=== PATIENT | male | born 1960 | race Two or more races ===

== ENCOUNTER 2020-02-18 15:36 | Inpatient (IN) | payer BC, OTHER ==
[~2020-02-18] VITALS: Ht 165.1 cm; Wt 59.5 kg
[2020-02-18] MEDS ORDERED: SODIUM CHLORIDE 0.9% 1,000 ML IV ONE (16:00)
[2020-02-18] MEDS ORDERED: cefTRIAXone 1GM/50ML D5W 50 ML IV ONE (16:15)
[2020-02-18] MEDS ORDERED: metroNIDAZOLE 500MG/100ML 100 ML IV ONE (16:15)
[2020-02-18 17:19] LABS: Basophils # (auto) 0.1 10 ^3/uL (0-0.2); Basophils % (auto) 0.6 % (0.0-2.0); Eosinophils # (auto) 0 10 ^3/uL (0-0.8); Eosinophils % (auto) 0.1 % (0.0-7.0); Hematocrit 44.2 % (41.0-53.0); Hemoglobin 14.7 g/dL (13.5-17.5); Lymphocytes # (auto) 2.5 10 ^3/uL (0.4-5.4); Lymphocytes % (auto) 16.6 % (10.0-50.0); Mean Corpuscular Hemoglobin 29.7 pg (28.0-32.0); Mean Corpuscular Hgb Conc. 33.3 g/dL (32.0-36.0); Mean Corpuscular Volume 89.4 fL (80.0-100.0); Monocytes # (auto) 1.2 10 ^3/uL (0-1.3); Neutrophils # (auto) 11.4 10 ^3/uL (1.6-8.6); Neutrophils % (auto) 74.7 % (37.0-80.0); Nucleated Red Blood Cells % 0.1 %; Platelet Count (auto) 272 10^3/uL (140-450); Red Blood Cells 4.94 10^6/uL (4.5-5.90); Red Cell Distribution Width 15.4 % (11.8-14.3); White Blood Cell 15.2 10^3/uL (4.4-10.8)
[2020-02-18 17:47] LABS: Alanine Aminotransferase 19 U/L (16-61); Albumin 1.5 g/dL (3.4-5.0); Anion Gap 11 (5-15); Aspartate Aminotransferase 44 U/L (15-37); BUN/Creatinine Ratio 11.7; Blood Urea Nitrogen 7 mg/dL (7-18); Calcium 7.6 mg/dL (8.5-10.1); Carbon Dioxide 24 mmol/L (21-32); Chloride 92 mmol/L (98-107); GFR African American 176 mL/min; GFR Non-African American 146 mL/min; Glucose 88 mg/dL (74-106); Potassium 4.8 mmol/L (3.5-5.1); Sodium 127 mmol/L (136-145)
[2020-02-18 17:53] LABS: Alkaline Phosphatase 113 U/L (45-117); Bilirubin, Total 0.9 mg/dL (0.2-1.0); Total Protein 7.2 g/dL (6.4-8.2)
[2020-02-18] MEDS ORDERED: LORazepam 2MG/ML-1ML VIAL IV PRN (19:30)
[2020-02-18] MEDS ORDERED: ALBUTEROL SULF HFA 90MCG INH 200DOSE IN PRN (19:30)
[2020-02-18] MEDS ORDERED: LABETALOL HCL 5 MG/ML 4ML SYRINGE IV PRN (19:30)
[2020-02-18] MEDS ORDERED: ONDANSETRON HCL 4 MG/2 ML VIAL IV PRN (19:30)
[2020-02-18] MEDS ORDERED: MORPHINE SULF INJ 2 MG/ML SYRINGE 1ML IV PRN ×2 (19:30)
[2020-02-18] MEDS ORDERED: NITROGLYCERIN 0.4 MG SL TAB SL PRN (19:30)
[2020-02-18 19:42] LABS: INR 1.69 (0.9-1.15); Partial Thromboplastin Time 37.9 sec (23.0-31.2)
[2020-02-18] MEDS: SODIUM CHLORIDE 0.9% 1,000 ML IV SCH (21:21)
[2020-02-18] MEDS: BUDESONIDE (INHALATION) 180 MCG IH IN SCH (22:00)
[2020-02-18] MEDS: metroNIDAZOLE 500MG/100ML 100 ML IV SCH (22:53)
[2020-02-19] MEDS: CLINDAMYCIN 300MG IV 50 ML IV SCH ×4 (00:21→22:00)
[2020-02-19] MEDS: PIPERACILLIN-TAZOB 3.375GM 100 ML IV SCH ×4 (01:06→18:30)
[2020-02-19] MEDS: SODIUM CHLORIDE 0.9% 1,000 ML IV SCH ×2 (05:30→15:30)
[2020-02-19] MEDS: metroNIDAZOLE 500MG/100ML 100 ML IV SCH ×2 (06:00→18:24)
[2020-02-19 09:50] LABS: Basophils # (auto) 0.1 10 ^3/uL (0-0.2); Basophils % (auto) 0.6 % (0.0-2.0); Eosinophils # (auto) 0 10 ^3/uL (0-0.8); Eosinophils % (auto) 0.1 % (0.0-7.0); Hematocrit 39.8 % (41.0-53.0); Hemoglobin 13.4 g/dL (13.5-17.5); Lymphocytes # (auto) 1.6 10 ^3/uL (0.4-5.4); Lymphocytes % (auto) 11.5 % (10.0-50.0); Mean Corpuscular Hgb Conc. 33.7 g/dL (32.0-36.0); Monocytes # (auto) 0.7 10 ^3/uL (0-1.3); Neutrophils # (auto) 11.5 10 ^3/uL (1.6-8.6); Neutrophils % (auto) 82.8 % (37.0-80.0); Nucleated Red Blood Cells % 0.1 %; Platelet Count (auto) 227 10^3/uL (140-450); Red Blood Cells 4.47 10^6/uL (4.5-5.90); Red Cell Distribution Width 15.4 % (11.8-14.3); White Blood Cell 13.8 10^3/uL (4.4-10.8)
[2020-02-19] MEDS: PANTOPRAZOLE 40 MG/10 ML VIAL INJ IV SCH (09:56)
[2020-02-19] MEDS: ENOXAPARIN SOD 40 MG/0.4 ML SYRINGE SC SCH (09:56)
[2020-02-19] MEDS: BUDESONIDE (INHALATION) 180 MCG IH IN SCH ×2 (10:00→10:51)
[2020-02-19 10:12] LABS: Potassium 4.4 mmol/L (3.5-5.1)
[2020-02-19 10:28] LABS: Albumin 1.4 g/dL (3.4-5.0); Bilirubin, Total 0.9 mg/dL (0.2-1.0); Calcium 7.5 mg/dL (8.5-10.1); Total Protein 6.6 g/dL (6.4-8.2)
[2020-02-19 13:35] VITALS: BP 131/68
[2020-02-19 13:50] VITALS: BP 131/68
[2020-02-19] MEDS ORDERED: DEXTROSE (50%) 50ML SYRG IV PRN (15:15)
[2020-02-19 15:24] LABS: Urine Bacteria NONE SEEN /hpf (None Seen); Urine Blood Negative /uL (Negative); Urine Budding Yeast LOADED /hpf (None Seen); Urine Specific Gravity 1.013 (1.001-1.035); Urine WBC 15 /hpf (0 - 3)
[2020-02-19 15:41] LABS: Amphetamine Screen, Urine NEGATIVE (NEGATIVE); Barbiturate Scree,Urine NEGATIVE (NEGATIVE); Benzodiazephine Screen, Urine NEGATIVE (NEGATIVE); Cannabinoid Screen, Urine NEGATIVE (NEGATIVE); Cocaine Screen, Urine NEGATIVE (NEGATIVE); Opiate Scree,Urine NEGATIVE (NEGATIVE); Phencyclidine Screen, Urine NEGATIVE (NEGATIVE)
[2020-02-19] MEDS ORDERED: IOHEXOL 350 MG/ML 100ML IJ ONE ×2 (16:21→21:13)
[2020-02-19 17:00] VITALS: BP 138/69
[2020-02-19] MEDS: ACCU-CHEK COMFORT CURVE STRIP VI SCH ×2 (17:00→22:00)
[2020-02-19] MEDS: InsuLIN REG 1unit/0.01ml Soln (100units/ml) SC SCH ×2 (17:00→22:00)
[2020-02-19] MEDS ORDERED: PROMETHAZINE HCL 25 MG/ML 1ML ONE (17:37)
[2020-02-19] MEDS: Glucerna Carbsteady SHAKE Vanilla 8oz PO SCH (18:00)
[2020-02-19] MEDS ORDERED: ALBUTEROL SULF 2.5 MG/0.5ML(0.5%) NEB SOLN NEB PRN (20:15)
[2020-02-19 22:00] VITALS: BP 134/65
[2020-02-20] MEDS: PIPERACILLIN-TAZOB 3.375GM 100 ML IV SCH ×4 (00:05→18:40)
[2020-02-20] MEDS: SODIUM CHLORIDE 0.9% 1,000 ML IV SCH ×2 (01:30→11:30)
[2020-02-20] MEDS: metroNIDAZOLE 500MG/100ML 100 ML IV SCH ×3 (02:45→18:40)
[2020-02-20 05:00] VITALS: BP 134/72
[2020-02-20] MEDS: CLINDAMYCIN 300MG IV 50 ML IV SCH ×2 (05:50→14:01)
[2020-02-20] MEDS: ACCU-CHEK COMFORT CURVE STRIP VI SCH ×3 (06:39→18:41)
[2020-02-20] MEDS: InsuLIN REG 1unit/0.01ml Soln (100units/ml) SC SCH ×3 (06:46→18:42)
[2020-02-20] MEDS: Glucerna Carbsteady SHAKE Vanilla 8oz PO SCH ×3 (08:00→18:00)
[2020-02-20 09:00] VITALS: BP 152/72
[2020-02-20 09:16] LABS: Basophils # (auto) 0.1 10 ^3/uL (0-0.2); Basophils % (auto) 0.7 % (0.0-2.0); Eosinophils # (auto) 0 10 ^3/uL (0-0.8); Eosinophils % (auto) 0.2 % (0.0-7.0); Hematocrit 43.5 % (41.0-53.0); Hemoglobin 14.8 g/dL (13.5-17.5); Lymphocytes # (auto) 2.3 10 ^3/uL (0.4-5.4); Mean Corpuscular Hemoglobin 30.1 pg (28.0-32.0); Mean Corpuscular Volume 88.4 fL (80.0-100.0); Monocytes # (auto) 0.6 10 ^3/uL (0-1.3); Monocytes % (auto) 3.2 % (0.0-12.0); Neutrophils # (auto) 16.4 10 ^3/uL (1.6-8.6); Neutrophils % (auto) 83.9 % (37.0-80.0); Nucleated Red Blood Cells % 0.1 %; Platelet Count (auto) 292 10^3/uL (140-450); Red Blood Cells 4.92 10^6/uL (4.5-5.90); Red Cell Distribution Width 15.6 % (11.8-14.3); White Blood Cell 19.5 10^3/uL (4.4-10.8)
[2020-02-20 09:31] LABS: Albumin 1.5 g/dL (3.4-5.0); Calcium 7.7 mg/dL (8.5-10.1); Potassium 3.8 mmol/L (3.5-5.1)
[2020-02-20 09:34] LABS: BUN/Creatinine Ratio 6.4; Bilirubin, Total 1.2 mg/dL (0.2-1.0); Total Protein 7.8 g/dL (6.4-8.2)
[2020-02-20] MEDS ORDERED: PHYTONADIONE(VitK) ORAL Susp 10mg/10ml(1mg/ml) PO ONE (10:45)
[2020-02-20] MEDS ORDERED: LOSARTAN POTASSIUM 50 MG TAB PO ONE (11:15)
[2020-02-20] MEDS: PANTOPRAZOLE 40 MG/10 ML VIAL INJ IV SCH (11:53)
[2020-02-20] MEDS: ENOXAPARIN SOD 40 MG/0.4 ML SYRINGE SC SCH (11:53)
[2020-02-20] MEDS: ACETAMINOPHEN 325 MG TAB PO PRN (12:27)
[2020-02-20 13:00] VITALS: BP 144/69
[2020-02-20 17:00] VITALS: BP 146/64
[2020-02-20 22:00] VITALS: BP 146/83
[2020-02-20] MEDS ORDERED: PHENYTOIN SODIUM 100 MG CAP PO SCH (22:00)
[2020-02-20] MEDS: ATORVASTATIN 20 MG TAB PO SCH (22:29)
[2020-02-20] MEDS ORDERED: SUCCINYLCHOLINE CHLORIDE 20 MG/ML 10ML VIAL IV ONE ×2 (23:03→23:30)
[2020-02-20] MEDS ORDERED: ROCURONIUM 10MG/ML 10ML VIAL IV ONE (23:03)
[2020-02-20] MEDS ORDERED: ETOMIDATE (2MG/ML) 20ML VIAL IV ONE ×2 (23:03→23:30)
[2020-02-20 23:30] VITALS: BP 162/86
[2020-02-20] MEDS ORDERED: ACETAMINOPHEN 650 mg PER 20.3 mL UD GT PRN ×3 (23:30)
[2020-02-20] MEDS ORDERED: MIDAZOLAM DRIP 50 mg/50mL 50 ML IV SCH ×2 (23:30)
[2020-02-20] MEDS ORDERED: NOREPINEPHRINE 8 MG/250ML KIT 250 ML IV ONE (23:53)
[2020-02-21] VITALS (110 sets, daily range): BP systolic 62–170; BP diastolic 40–91
[2020-02-21] MEDS: InsuLIN REG 1unit/0.01ml Soln (100units/ml) SC SCH ×4 (00:23→23:19)
[2020-02-21] MEDS: ACCU-CHEK COMFORT CURVE STRIP VI SCH ×3 (00:23→23:19)
[2020-02-21] MEDS: MIDAZOLAM DRIP 50 mg/50mL 50 ML IV SCH ×2 (00:25→21:58)
[2020-02-21] MEDS ORDERED: fentaNYL Drip 2500mCg/250mlNS 250 ML IV ONE (00:28)
[2020-02-21] MEDS: SODIUM CHLORIDE 0.9% 1,000 ML IV SCH ×3 (00:32→17:30)
[2020-02-21] MEDS: NOREPINEPHRINE 8 MG/250ML KIT 250 ML IV SCH ×2 (00:33→21:44)
[2020-02-21] MEDS: fentaNYL Drip 2500mCg/250mlNS 250 ML IV SCH (00:33)
[2020-02-21] MEDS: PIPERACILLIN-TAZOB 3.375GM 100 ML IV SCH ×2 (01:02→05:34)
[2020-02-21] MEDS: metroNIDAZOLE 500MG/100ML 100 ML IV SCH ×2 (01:53→10:24)
[2020-02-21 03:43] LABS: Basophils # (auto) 0.1 10 ^3/uL (0-0.2); Basophils % (auto) 0.5 % (0.0-2.0); Eosinophils # (auto) 0 10 ^3/uL (0-0.8); Eosinophils % (auto) 0.1 % (0.0-7.0); Hematocrit 35.8 % (41.0-53.0); Hemoglobin 12.4 g/dL (13.5-17.5); Lymphocytes # (auto) 1.6 10 ^3/uL (0.4-5.4); Lymphocytes % (auto) 9.4 % (10.0-50.0); Mean Corpuscular Hemoglobin 30.7 pg (28.0-32.0); Mean Corpuscular Hgb Conc. 34.8 g/dL (32.0-36.0); Mean Corpuscular Volume 88.3 fL (80.0-100.0); Monocytes # (auto) 0.6 10 ^3/uL (0-1.3); Monocytes % (auto) 3.5 % (0.0-12.0); Neutrophils # (auto) 15.1 10 ^3/uL (1.6-8.6); Neutrophils % (auto) 86.5 % (37.0-80.0); Platelet Count (auto) 266 10^3/uL (140-450); Red Blood Cells 4.05 10^6/uL (4.5-5.90); Red Cell Distribution Width 15.5 % (11.8-14.3); White Blood Cell 17.4 10^3/uL (4.4-10.8)
[2020-02-21 03:57] LABS: INR 2.04 (0.9-1.15)
[2020-02-21 04:02] LABS: Albumin 1.4 g/dL (3.4-5.0); Calcium 7.4 mg/dL (8.5-10.1)
[2020-02-21 04:04] LABS: BUN/Creatinine Ratio 8.3; Bilirubin, Total 1.2 mg/dL (0.2-1.0); Total Protein 6.6 g/dL (6.4-8.2)
[2020-02-21] MEDS: CLINDAMYCIN 300MG IV 50 ML IV SCH ×2 (05:34)
[2020-02-21] MEDS: Glucerna Carbsteady SHAKE Vanilla 8oz PO SCH ×3 (08:00→18:00)
[2020-02-21] MEDS: LOSARTAN POTASSIUM 50 MG TAB PO SCH (10:00)
[2020-02-21] MEDS: ENOXAPARIN SOD 40 MG/0.4 ML SYRINGE SC SCH (10:00)
[2020-02-21] MEDS: PANTOPRAZOLE 40 MG/10 ML VIAL INJ IV SCH (10:30)
[2020-02-21] MEDS ORDERED: TPN PER PHARMACY 0 ML IV SCH (17:45)
[2020-02-21] MEDS ORDERED: VANCOMYCIN PER PHARMACY 0 MG IV SCH (17:45)
[2020-02-21] MEDS: AMINO ACID INFUSION IN D10W 1,000 ML IV NR (20:06)
[2020-02-21] MEDS: VANCOMYCIN 1GM/250ML 250 ML IV SCH (20:10)
[2020-02-21] MEDS: ATORVASTATIN 20 MG TAB PO SCH (22:06)
[2020-02-21] MEDS: MEROPENEM 1GM IVPB 100 ML IV SCH (22:17)
[2020-02-21] MEDS: PHENYTOIN 100 MG/4 ML SUSP PO SCH (22:17)
[2020-02-22] VITALS (82 sets, daily range): BP systolic 79–142; BP diastolic 46–75
[2020-02-22] MEDS ORDERED: DEXTROSE (50%) 50ML SYRG IV SCH
[2020-02-22] MEDS: SODIUM CHLORIDE 0.9% 1,000 ML IV SCH ×2 (01:52→17:55)
[2020-02-22] MEDS: MIDAZOLAM DRIP 50 mg/50mL 50 ML IV SCH ×5 (01:53→23:33)
[2020-02-22] MEDS: fentaNYL Drip 2500mCg/250mlNS 250 ML IV SCH ×2 (01:54→16:25)
[2020-02-22] MEDS: NOREPINEPHRINE 8 MG/250ML KIT 250 ML IV SCH ×2 (03:19→16:17)
[2020-02-22 04:43] LABS: Basophils # (auto) 0.1 10 ^3/uL (0-0.2); Basophils % (auto) 0.5 % (0.0-2.0); Eosinophils # (auto) 0.1 10 ^3/uL (0-0.8); Eosinophils % (auto) 1.3 % (0.0-7.0); Hematocrit 35.8 % (41.0-53.0); Hemoglobin 11.8 g/dL (13.5-17.5); Lymphocytes # (auto) 1.4 10 ^3/uL (0.4-5.4); Lymphocytes % (auto) 12.8 % (10.0-50.0); Mean Corpuscular Hemoglobin 30.4 pg (28.0-32.0); Mean Corpuscular Volume 92.1 fL (80.0-100.0); Monocytes # (auto) 0.7 10 ^3/uL (0-1.3); Neutrophils # (auto) 8.9 10 ^3/uL (1.6-8.6); Neutrophils % (auto) 79.4 % (37.0-80.0); Platelet Count (auto) 250 10^3/uL (140-450); Red Blood Cells 3.88 10^6/uL (4.5-5.90); Red Cell Distribution Width 16.2 % (11.8-14.3); White Blood Cell 11.2 10^3/uL (4.4-10.8)
[2020-02-22 04:58] LABS: INR 1.92 (0.9-1.15)
[2020-02-22] MEDS: VANCOMYCIN 1GM/250ML 250 ML IV SCH ×3 (05:05→20:00)
[2020-02-22 05:12] LABS: Chloride 94 mmol/L (98-107); Potassium 4.3 mmol/L (3.5-5.1); Sodium 128 mmol/L (136-145)
[2020-02-22 05:25] LABS: Alanine Aminotransferase 18 U/L (16-61); Albumin 1.2 g/dL (3.4-5.0); Alkaline Phosphatase 142 U/L (45-117); Amylase 64 U/L (25-115); Anion Gap 5 (5-15); Aspartate Aminotransferase 68 U/L (15-37); BUN/Creatinine Ratio 5.3; Bilirubin, Total 0.4 mg/dL (0.2-1.0); Blood Urea Nitrogen 4 mg/dL (7-18); Calcium 7.4 mg/dL (8.5-10.1); Carbon Dioxide 29 mmol/L (21-32); GFR African American 136 mL/min; GFR Non-African American 113 mL/min; Glucose 197 mg/dL (74-106); Lipase 531 U/L (73-393); Magnesium 2.4 mg/dL (1.6-2.6); Phosphorus 3.2 mg/dL (2.5-4.90); Pre Albumin < 3.0 mg/dL (20.0-40.0); Total Protein 6.9 g/dL (6.4-8.2); Triglycerides 68 mg/dL (< 150)
[2020-02-22] MEDS: ACCU-CHEK COMFORT CURVE STRIP VI SCH ×3 (05:53→17:56)
[2020-02-22] MEDS: InsuLIN REG 1unit/0.01ml Soln (100units/ml) SC SCH ×3 (05:57→18:04)
[2020-02-22] MEDS ORDERED: ATO40T PO (06:18)
[2020-02-22] MEDS ORDERED: METF-370 PO (06:18)
[2020-02-22] MEDS ORDERED: LOSA-69 PO (06:18)
[2020-02-22] MEDS: MEROPENEM 1GM IVPB 100 ML IV SCH ×3 (06:58→21:20)
[2020-02-22] MEDS: Glucerna Carbsteady SHAKE Vanilla 8oz PO SCH ×3 (08:00→17:55)
[2020-02-22] MEDS: LOSARTAN POTASSIUM 50 MG TAB PO SCH (10:00)
[2020-02-22] MEDS: PHENYTOIN 100 MG/4 ML SUSP PO SCH ×2 (10:24→21:54)
[2020-02-22] MEDS: PANTOPRAZOLE 40 MG/10 ML VIAL INJ IV SCH (10:24)
[2020-02-22] MEDS: ACETAMINOPHEN 325 MG TAB PO PRN (10:28)
[2020-02-22] MEDS: ENOXAPARIN SOD 40 MG/0.4 ML SYRINGE SC SCH (10:33)
[2020-02-22] MEDS: AMINO ACID INFUSION IN D10W 1,000 ML IV NR (19:49)
[2020-02-22] MEDS ORDERED: SODIUM CHLORIDE 0.9% 1,000 ML IV SCH (20:00)
[2020-02-22] MEDS ORDERED: PPN PER PHARMACY IV NR ×10 (20:00)
[2020-02-22] MEDS: ATORVASTATIN 20 MG TAB PO SCH (21:54)
[2020-02-22] MEDS: SODIUM CHLOR 0.9% PF (SALINE LOCK) 10ML VIAL/SYR IV SCH (22:00)
[2020-02-23] VITALS (96 sets, daily range): BP systolic 110–161; BP diastolic 53–78
[2020-02-23] MEDS: VANCOMYCIN 1GM/250ML 250 ML IV SCH (04:00)
[2020-02-23 04:58] LABS: Basophils # (auto) 0.1 10 ^3/uL (0-0.2); Basophils % (auto) 1.2 % (0.0-2.0); Eosinophils # (auto) 0.2 10 ^3/uL (0-0.8); Eosinophils % (auto) 2.1 % (0.0-7.0); Hematocrit 29.7 % (41.0-53.0); Hemoglobin 9.9 g/dL (13.5-17.5); Lymphocytes # (auto) 1.2 10 ^3/uL (0.4-5.4); Lymphocytes % (auto) 13.9 % (10.0-50.0); Mean Corpuscular Hemoglobin 30.1 pg (28.0-32.0); Mean Corpuscular Hgb Conc. 33.3 g/dL (32.0-36.0); Mean Corpuscular Volume 90.3 fL (80.0-100.0); Monocytes # (auto) 0.5 10 ^3/uL (0-1.3); Monocytes % (auto) 5.6 % (0.0-12.0); Neutrophils # (auto) 6.6 10 ^3/uL (1.6-8.6); Neutrophils % (auto) 77.2 % (37.0-80.0); Nucleated Red Blood Cells % 0.1 %; Platelet Count (auto) 159 10^3/uL (140-450); Red Blood Cells 3.29 10^6/uL (4.5-5.90); White Blood Cell 8.6 10^3/uL (4.4-10.8)
[2020-02-23 05:05] LABS: INR 1.7 (0.9-1.15)
[2020-02-23 05:20] LABS: Potassium 3.4 mmol/L (3.5-5.1)
[2020-02-23 05:28] LABS: BUN/Creatinine Ratio 8.7; Bilirubin, Total 0.4 mg/dL (0.2-1.0); Calcium 7.6 mg/dL (8.5-10.1); Magnesium 2.2 mg/dL (1.6-2.6); Total Protein 5.8 g/dL (6.4-8.2)
[2020-02-23 05:32] LABS: Phosphorus 0.9 mg/dL (2.5-4.90)
[2020-02-23] MEDS: MEROPENEM 1GM IVPB 100 ML IV SCH ×3 (05:54→21:33)
[2020-02-23] MEDS: InsuLIN REG 1unit/0.01ml Soln (100units/ml) SC SCH ×4 (05:55→17:27)
[2020-02-23] MEDS: ACCU-CHEK COMFORT CURVE STRIP VI SCH ×4 (06:07→17:24)
[2020-02-23] MEDS: MIDAZOLAM DRIP 50 mg/50mL 50 ML IV SCH ×2 (07:09→16:57)
[2020-02-23] MEDS: Glucerna Carbsteady SHAKE Vanilla 8oz PO SCH ×3 (08:00→16:52)
[2020-02-23] MEDS ORDERED: POTASSIUM PHOSPHATE 44 MEQ in D5W 5% 250 ML IV ONE (09:00)
[2020-02-23] MEDS ORDERED: SODIUM CHLORIDE 0.9% 1,000 ML IV SCH (09:15)
[2020-02-23] MEDS: PANTOPRAZOLE 40 MG/10 ML VIAL INJ IV SCH (09:56)
[2020-02-23] MEDS: SODIUM CHLOR 0.9% PF (SALINE LOCK) 10ML VIAL/SYR IV SCH ×2 (09:57→21:33)
[2020-02-23] MEDS: PHENYTOIN 100 MG/4 ML SUSP PO SCH ×2 (09:57→21:33)
[2020-02-23] MEDS: ENOXAPARIN SOD 40 MG/0.4 ML SYRINGE SC SCH (09:58)
[2020-02-23] MEDS: fentaNYL Drip 2500mCg/250mlNS 250 ML IV SCH (10:13)
[2020-02-23] MEDS: LOSARTAN POTASSIUM 50 MG TAB PO SCH (13:08)
[2020-02-23] MEDS ORDERED: TPN PER PHARMACY IV NR ×10 (20:00)
[2020-02-23] MEDS: SODIUM CHLORIDE 0.9% 1,000 ML IV SCH (20:38)
[2020-02-23] MEDS: ATORVASTATIN 20 MG TAB PO SCH (21:34)
[2020-02-24] VITALS (94 sets, daily range): BP systolic 70–160; BP diastolic 54–93
[2020-02-24] MEDS: ACCU-CHEK COMFORT CURVE STRIP VI SCH ×4 (00:04→17:16)
[2020-02-24] MEDS: InsuLIN REG 1unit/0.01ml Soln (100units/ml) SC SCH ×4 (00:11→17:18)
[2020-02-24] MEDS: NOREPINEPHRINE 8 MG/250ML KIT 250 ML IV SCH ×2 (00:30→22:23)
[2020-02-24] MEDS: VANCOMYCIN 1GM/250ML 250 ML IV SCH ×2 (01:09→12:46)
[2020-02-24] MEDS: fentaNYL Drip 2500mCg/250mlNS 250 ML IV SCH ×2 (04:24→23:26)
[2020-02-24] MEDS: MIDAZOLAM DRIP 50 mg/50mL 50 ML IV SCH ×2 (04:26→15:44)
[2020-02-24 05:45] LABS: Calcium 7.3 mg/dL (8.5-10.1); Magnesium 2.3 mg/dL (1.6-2.6); Potassium 3.8 mmol/L (3.5-5.1)
[2020-02-24 05:50] LABS: BUN/Creatinine Ratio 19.4; Bilirubin, Total 0.4 mg/dL (0.2-1.0); Total Protein 6.2 g/dL (6.4-8.2)
[2020-02-24] MEDS: MEROPENEM 1GM IVPB 100 ML IV SCH ×3 (05:59→22:19)
[2020-02-24] MEDS: Glucerna Carbsteady SHAKE Vanilla 8oz PO SCH ×3 (08:00→17:15)
[2020-02-24] MEDS: SODIUM CHLOR 0.9% PF (SALINE LOCK) 10ML VIAL/SYR IV SCH ×2 (09:11→22:19)
[2020-02-24] MEDS: PANTOPRAZOLE 40 MG/10 ML VIAL INJ IV SCH (09:11)
[2020-02-24] MEDS: LOSARTAN POTASSIUM 50 MG TAB PO SCH (09:13)
[2020-02-24] MEDS: PHENYTOIN 100 MG/4 ML SUSP PO SCH ×2 (09:13→22:20)
[2020-02-24] MEDS: ENOXAPARIN SOD 40 MG/0.4 ML SYRINGE SC SCH (09:13)
[2020-02-24 09:53] LABS: Albumin 0.9 g/dL (3.4-5.0)
[2020-02-24] MEDS ORDERED: POTASSIUM PHOSP 26.4MEQ(18MMOL) IN NS 100 ML IV ONE (10:30)
[2020-02-24] MEDS: SODIUM CHLORIDE 0.9% 1,000 ML IV SCH (11:21)
[2020-02-24] MEDS ORDERED: SODIUM CHLORIDE 0.9% 1,000 ML IV SCH (20:00)
[2020-02-24] MEDS ORDERED: TPN PER PHARMACY IV NR ×10 (20:00)
[2020-02-24] MEDS: ATORVASTATIN 20 MG TAB PO SCH (22:20)
[2020-02-25] VITALS (91 sets, daily range): BP systolic 99–182; BP diastolic 59–104
[2020-02-25] MEDS: ACCU-CHEK COMFORT CURVE STRIP VI SCH ×4 (00:13→17:46)
[2020-02-25] MEDS: VANCOMYCIN 1GM/250ML 250 ML IV SCH ×2 (00:16→13:38)
[2020-02-25] MEDS: InsuLIN REG 1unit/0.01ml Soln (100units/ml) SC SCH ×4 (00:32→17:51)
[2020-02-25 05:24] LABS: Calcium 7.2 mg/dL (8.5-10.1); Magnesium 2.3 mg/dL (1.6-2.6); Potassium 3.8 mmol/L (3.5-5.1)
[2020-02-25] MEDS: MEROPENEM 1GM IVPB 100 ML IV SCH ×3 (05:25→21:58)
[2020-02-25 05:27] LABS: Bilirubin, Total 0.4 mg/dL (0.2-1.0); Phosphorus 2.7 mg/dL (2.5-4.90); Total Protein 6.1 g/dL (6.4-8.2)
[2020-02-25 05:40] LABS: Albumin 0.9 g/dL (3.4-5.0)
[2020-02-25] MEDS: Glucerna Carbsteady SHAKE Vanilla 8oz PO SCH ×3 (08:00→17:12)
[2020-02-25] MEDS ORDERED: SODIUM CHLORIDE 0.9% 1,000 ML IV SCH (09:30)
[2020-02-25] MEDS: PANTOPRAZOLE 40 MG/10 ML VIAL INJ IV SCH (09:43)
[2020-02-25] MEDS: FLUCONAZOLE 200MG/100ML 100 ML IV SCH ×2 (09:43→11:58)
[2020-02-25] MEDS: PHENYTOIN 100 MG/4 ML SUSP PO SCH ×2 (09:44→21:59)
[2020-02-25] MEDS: SODIUM CHLOR 0.9% PF (SALINE LOCK) 10ML VIAL/SYR IV SCH ×2 (09:44→21:58)
[2020-02-25] MEDS: ENOXAPARIN SOD 40 MG/0.4 ML SYRINGE SC SCH (09:44)
[2020-02-25] MEDS: LOSARTAN POTASSIUM 50 MG TAB PO SCH (10:26)
[2020-02-25] MEDS: fentaNYL Drip 2500mCg/250mlNS 250 ML IV SCH (16:34)
[2020-02-25] MEDS: MIDAZOLAM DRIP 50 mg/50mL 50 ML IV SCH (16:39)
[2020-02-25] MEDS ORDERED: TPN PER PHARMACY IV NR ×11 (20:00)
[2020-02-25] MEDS: ATORVASTATIN 20 MG TAB PO SCH (21:59)
[2020-02-26] VITALS (21 sets, daily range): BP systolic 95–188; BP diastolic 55–101
[2020-02-26] MEDS: NOREPINEPHRINE 8 MG/250ML KIT 250 ML IV SCH (00:30)
[2020-02-26] MEDS: VANCOMYCIN 1GM/250ML 250 ML IV SCH ×2 (01:39→18:10)
[2020-02-26] MEDS: ACCU-CHEK COMFORT CURVE STRIP VI SCH ×4 (06:04→18:10)
[2020-02-26] MEDS: InsuLIN REG 1unit/0.01ml Soln (100units/ml) SC SCH ×4 (06:09→18:11)
[2020-02-26] MEDS: MEROPENEM 1GM IVPB 100 ML IV SCH ×3 (06:10→22:27)
[2020-02-26 07:24] LABS: Basophils # (auto) 0.1 10 ^3/uL (0-0.2); Basophils % (auto) 1.1 % (0.0-2.0); Eosinophils # (auto) 0 10 ^3/uL (0-0.8); Eosinophils % (auto) 0.4 % (0.0-7.0); Hematocrit 32.1 % (41.0-53.0); Hemoglobin 10.7 g/dL (13.5-17.5); Lymphocytes # (auto) 0.8 10 ^3/uL (0.4-5.4); Lymphocytes % (auto) 8.1 % (10.0-50.0); Mean Corpuscular Hgb Conc. 33.3 g/dL (32.0-36.0); Mean Corpuscular Volume 90.2 fL (80.0-100.0); Monocytes # (auto) 1.1 10 ^3/uL (0-1.3); Neutrophils # (auto) 7.9 10 ^3/uL (1.6-8.6); Neutrophils % (auto) 79.4 % (37.0-80.0); Nucleated Red Blood Cells % 0.1 %; Platelet Count (auto) 217 10^3/uL (140-450); Red Blood Cells 3.56 10^6/uL (4.5-5.90); Red Cell Distribution Width 15.7 % (11.8-14.3); White Blood Cell 9.9 10^3/uL (4.4-10.8)
[2020-02-26 07:45] LABS: Potassium 3.9 mmol/L (3.5-5.1)
[2020-02-26 07:58] LABS: BUN/Creatinine Ratio 30.9; Bilirubin, Total 0.5 mg/dL (0.2-1.0); Calcium 7.5 mg/dL (8.5-10.1); Magnesium 2.4 mg/dL (1.6-2.6); Phosphorus 4.5 mg/dL (2.5-4.90); Total Protein 6.8 g/dL (6.4-8.2)
[2020-02-26] MEDS: Glucerna Carbsteady SHAKE Vanilla 8oz PO SCH ×3 (08:00→18:00)
[2020-02-26] MEDS: SODIUM CHLOR 0.9% PF (SALINE LOCK) 10ML VIAL/SYR IV SCH ×2 (10:00→22:28)
[2020-02-26] MEDS: PHENYTOIN 100 MG/4 ML SUSP PO SCH ×2 (10:00→22:28)
[2020-02-26] MEDS: LOSARTAN POTASSIUM 50 MG TAB PO SCH (10:00)
[2020-02-26] MEDS: ENOXAPARIN SOD 40 MG/0.4 ML SYRINGE SC SCH (10:00)
[2020-02-26] MEDS: PANTOPRAZOLE 40 MG/10 ML VIAL INJ IV SCH (10:00)
[2020-02-26] MEDS: FLUCONAZOLE 200MG/100ML 100 ML IV SCH ×2 (10:00→11:00)
[2020-02-26] MEDS: SODIUM CHLORIDE 0.9% 1,000 ML IV SCH ×2 (20:00→22:27)
[2020-02-26] MEDS: TPN PER PHARMACY IV NR ×9 (21:58)
[2020-02-26] MEDS: ATORVASTATIN 20 MG TAB PO SCH (22:28)
[2020-02-27] MEDS: VANCOMYCIN 1GM/250ML 250 ML IV SCH ×2 (01:00→15:53)
[2020-02-27] MEDS: InsuLIN REG 1unit/0.01ml Soln (100units/ml) SC SCH ×5 (01:20→23:27)
[2020-02-27] MEDS: ACCU-CHEK COMFORT CURVE STRIP VI SCH ×5 (01:21→23:26)
[2020-02-27 05:00] VITALS: BP 134/71
[2020-02-27 05:52] LABS: Calcium 7.2 mg/dL (8.5-10.1); Magnesium 2.5 mg/dL (1.6-2.6); Potassium 3.6 mmol/L (3.5-5.1)
[2020-02-27 05:56] LABS: BUN/Creatinine Ratio 23.2; Bilirubin, Total 0.6 mg/dL (0.2-1.0); Phosphorus 1.8 mg/dL (2.5-4.90); Total Protein 6.4 g/dL (6.4-8.2)
[2020-02-27] MEDS: MEROPENEM 1GM IVPB 100 ML IV SCH ×3 (06:34→22:00)
[2020-02-27] MEDS: Glucerna Carbsteady SHAKE Vanilla 8oz PO SCH ×3 (08:00→18:00)
[2020-02-27 08:35] VITALS: BP 132/68
[2020-02-27] MEDS: MIDAZOLAM DRIP 50 mg/50mL 50 ML IV SCH (08:38)
[2020-02-27] MEDS: fentaNYL Drip 2500mCg/250mlNS 250 ML IV SCH (08:39)
[2020-02-27] MEDS: NOREPINEPHRINE 8 MG/250ML KIT 250 ML IV SCH (08:39)
[2020-02-27] MEDS: LOSARTAN POTASSIUM 50 MG TAB PO SCH (10:00)
[2020-02-27] MEDS: SODIUM CHLOR 0.9% PF (SALINE LOCK) 10ML VIAL/SYR IV SCH ×2 (10:00→22:00)
[2020-02-27] MEDS: ENOXAPARIN SOD 40 MG/0.4 ML SYRINGE SC SCH (10:00)
[2020-02-27] MEDS: PHENYTOIN 100 MG/4 ML SUSP PO SCH ×2 (10:27→22:00)
[2020-02-27] MEDS ORDERED: SODIUM PHOSPHATES 40 MEQ in D5W 5% 250 ML IV ONE (10:30)
[2020-02-27] MEDS: FLUCONAZOLE 200MG/100ML 100 ML IV SCH ×2 (11:00→12:29)
[2020-02-27 12:10] VITALS: BP 125/67
[2020-02-27] MEDS: PANTOPRAZOLE 40 MG/10 ML VIAL INJ IV SCH (12:29)
[2020-02-27 17:19] VITALS: BP 134/69
[2020-02-27] MEDS ORDERED: TPN PER PHARMACY IV NR ×10 (20:00)
[2020-02-27] MEDS: SODIUM CHLORIDE 0.9% 1,000 ML IV SCH (20:12)
[2020-02-27] MEDS: TPN PER PHARMACY IV NR ×9 (20:12)
[2020-02-27 22:00] VITALS: BP 126/64
[2020-02-27] MEDS: ATORVASTATIN 20 MG TAB PO SCH (22:00)
[2020-02-28] MEDS: VANCOMYCIN 1GM/250ML 250 ML IV SCH ×2 (01:00→12:48)
[2020-02-28 04:56] VITALS: BP 144/84
[2020-02-28] MEDS: ACCU-CHEK COMFORT CURVE STRIP VI SCH ×4 (06:00→23:24)
[2020-02-28] MEDS: InsuLIN REG 1unit/0.01ml Soln (100units/ml) SC SCH ×4 (06:00→23:24)
[2020-02-28] MEDS: MEROPENEM 1GM IVPB 100 ML IV SCH ×3 (06:00→21:24)
[2020-02-28 08:52] VITALS: BP 138/74
[2020-02-28] MEDS: Glucerna Carbsteady SHAKE Vanilla 8oz PO SCH ×3 (09:30→18:15)
[2020-02-28] MEDS: FLUCONAZOLE 200MG/100ML 100 ML IV SCH ×2 (09:58→12:45)
[2020-02-28] MEDS: SODIUM CHLOR 0.9% PF (SALINE LOCK) 10ML VIAL/SYR IV SCH ×2 (09:59→21:31)
[2020-02-28] MEDS: LOSARTAN POTASSIUM 50 MG TAB PO SCH (09:59)
[2020-02-28] MEDS: PANTOPRAZOLE 40 MG/10 ML VIAL INJ IV SCH (09:59)
[2020-02-28] MEDS: PHENYTOIN 100 MG/4 ML SUSP PO SCH ×2 (09:59→21:30)
[2020-02-28] MEDS: ENOXAPARIN SOD 40 MG/0.4 ML SYRINGE SC SCH (10:00)
[2020-02-28 10:38] LABS: Albumin 1.1 g/dL (3.4-5.0); Calcium 7.4 mg/dL (8.5-10.1); Magnesium 2.4 mg/dL (1.6-2.6); Potassium 3.8 mmol/L (3.5-5.1)
[2020-02-28 10:42] LABS: BUN/Creatinine Ratio 22.7; Bilirubin, Total 0.4 mg/dL (0.2-1.0); Phosphorus 2.9 mg/dL (2.5-4.90); Total Protein 7.3 g/dL (6.4-8.2)
[2020-02-28 13:00] VITALS: BP 131/72
[2020-02-28 17:30] VITALS: BP 114/63
[2020-02-28] MEDS: SODIUM CHLORIDE 0.9% 1,000 ML IV SCH (20:00)
[2020-02-28] MEDS: TPN PER PHARMACY IV NR ×11 (20:45)
[2020-02-28] MEDS: ATORVASTATIN 20 MG TAB PO SCH (21:31)
[2020-02-28 22:00] VITALS: BP 125/67
[2020-02-29] MEDS: VANCOMYCIN 1GM/250ML 250 ML IV SCH ×2 (01:12→13:30)
[2020-02-29] MEDS: MEROPENEM 1GM IVPB 100 ML IV SCH ×3 (05:39→23:21)
[2020-02-29] MEDS: ACCU-CHEK COMFORT CURVE STRIP VI SCH ×4 (05:40→23:45)
[2020-02-29] MEDS: InsuLIN REG 1unit/0.01ml Soln (100units/ml) SC SCH ×4 (05:47→23:45)
[2020-02-29 06:01] LABS: Basophils # (auto) 0.2 10 ^3/uL (0-0.2); Eosinophils # (auto) 0.2 10 ^3/uL (0-0.8); Eosinophils % (auto) 2.4 % (0.0-7.0); Hematocrit 32.8 % (41.0-53.0); Hemoglobin 11.3 g/dL (13.5-17.5); Lymphocytes # (auto) 2.2 10 ^3/uL (0.4-5.4); Lymphocytes % (auto) 23.3 % (10.0-50.0); Mean Corpuscular Hemoglobin 30.2 pg (28.0-32.0); Mean Corpuscular Hgb Conc. 34.3 g/dL (32.0-36.0); Monocytes % (auto) 10.4 % (0.0-12.0); Neutrophils # (auto) 5.9 10 ^3/uL (1.6-8.6); Neutrophils % (auto) 61.9 % (37.0-80.0); Nucleated Red Blood Cells % 0.1 %; Platelet Count (auto) 287 10^3/uL (140-450); Red Blood Cells 3.73 10^6/uL (4.5-5.90); Red Cell Distribution Width 15.2 % (11.8-14.3); White Blood Cell 9.5 10^3/uL (4.4-10.8)
[2020-02-29 06:04] VITALS: BP 124/70
[2020-02-29 06:16] LABS: Potassium 4.4 mmol/L (3.5-5.1)
[2020-02-29 06:31] LABS: Albumin 1.2 g/dL (3.4-5.0); BUN/Creatinine Ratio 23.8; Bilirubin, Total 0.7 mg/dL (0.2-1.0); Calcium 7.8 mg/dL (8.5-10.1); Magnesium 2.3 mg/dL (1.6-2.6); Phosphorus 3.6 mg/dL (2.5-4.90); Total Protein 7.5 g/dL (6.4-8.2)
[2020-02-29 08:29] VITALS: BP 117/68
[2020-02-29] MEDS: FLUCONAZOLE 200MG/100ML 100 ML IV SCH ×3 (10:26→17:00)
[2020-02-29] MEDS: SODIUM CHLOR 0.9% PF (SALINE LOCK) 10ML VIAL/SYR IV SCH ×2 (10:26→22:00)
[2020-02-29] MEDS: LOSARTAN POTASSIUM 50 MG TAB PO SCH (10:26)
[2020-02-29] MEDS: PANTOPRAZOLE 40 MG/10 ML VIAL INJ IV SCH (10:26)
[2020-02-29] MEDS: PHENYTOIN 100 MG/4 ML SUSP PO SCH ×2 (10:27→22:00)
[2020-02-29] MEDS: ENOXAPARIN SOD 40 MG/0.4 ML SYRINGE SC SCH (10:28)
[2020-02-29] MEDS: Glucerna Carbsteady SHAKE Vanilla 8oz PO SCH ×3 (10:28→18:00)
[2020-02-29 13:00] VITALS: BP 113/66
[2020-02-29 16:45] VITALS: BP 117/64
[2020-02-29] MEDS: TPN PER PHARMACY IV NR ×11 (19:52)
[2020-02-29] MEDS ORDERED: TPN PER PHARMACY IV NR ×9 (20:00)
[2020-02-29] MEDS: SODIUM CHLORIDE 0.9% 1,000 ML IV SCH (20:00)
[2020-02-29 22:00] VITALS: BP 111/75
[2020-02-29] MEDS: ATORVASTATIN 20 MG TAB PO SCH (22:00)
[2020-03-01] MEDS: VANCOMYCIN 1GM/250ML 250 ML IV SCH (01:00)
[2020-03-01 05:17] VITALS: BP 113/71
[2020-03-01] MEDS: MEROPENEM 1GM IVPB 100 ML IV SCH (06:00)
[2020-03-01] MEDS: InsuLIN REG 1unit/0.01ml Soln (100units/ml) SC SCH ×3 (06:00→22:00)
[2020-03-01] MEDS: ACCU-CHEK COMFORT CURVE STRIP VI SCH ×3 (06:00→22:00)
[2020-03-01 06:05] LABS: Potassium 4.2 mmol/L (3.5-5.1)
[2020-03-01 06:10] LABS: Albumin 1.2 g/dL (3.4-5.0); BUN/Creatinine Ratio 28.8; Bilirubin, Total 0.4 mg/dL (0.2-1.0); Calcium 7.9 mg/dL (8.5-10.1); Magnesium 2.2 mg/dL (1.6-2.6); Phosphorus 3.8 mg/dL (2.5-4.90); Total Protein 7.5 g/dL (6.4-8.2)
[2020-03-01] MEDS: Glucerna Carbsteady SHAKE Vanilla 8oz PO SCH ×3 (08:00→18:00)
[2020-03-01 09:00] VITALS: BP 116/66
[2020-03-01] MEDS: LOSARTAN POTASSIUM 50 MG TAB PO SCH (10:15)
[2020-03-01] MEDS: PANTOPRAZOLE 40 MG/10 ML VIAL INJ IV SCH (10:16)
[2020-03-01] MEDS: PHENYTOIN 100 MG/4 ML SUSP PO SCH ×2 (10:16→22:00)
[2020-03-01] MEDS: ENOXAPARIN SOD 40 MG/0.4 ML SYRINGE SC SCH (10:16)
[2020-03-01] MEDS: SODIUM CHLOR 0.9% PF (SALINE LOCK) 10ML VIAL/SYR IV SCH ×2 (10:17→22:00)
[2020-03-01] MEDS ORDERED: DEXTROSE (50%) 50ML SYRG IV PRN (12:15)
[2020-03-01 13:00] VITALS: BP 110/63
[2020-03-01] MEDS: FLUCONAZOLE 200MG/100ML 100 ML IV SCH ×2 (13:51→14:50)
[2020-03-01 16:40] VITALS: BP 122/71
[2020-03-01] MEDS ORDERED: VANCOMYCIN 1GM/250ML 250 ML IV SCH (17:00)
[2020-03-01] MEDS ORDERED: TPN PER PHARMACY IV NR ×11 (20:00)
[2020-03-01] MEDS: SODIUM CHLORIDE 0.9% 1,000 ML IV SCH (20:00)
[2020-03-01] MEDS: ATORVASTATIN 20 MG TAB PO SCH (22:00)
[2020-03-01 22:10] VITALS: BP 121/70
[2020-03-02] MEDS: ACCU-CHEK COMFORT CURVE STRIP VI SCH ×2 (05:11→11:42)
[2020-03-02] MEDS: InsuLIN REG 1unit/0.01ml Soln (100units/ml) SC SCH ×2 (05:11→12:30)
[2020-03-02 05:41] LABS: Albumin 1.4 g/dL (3.4-5.0); Magnesium 2.2 mg/dL (1.6-2.6); Potassium 4.4 mmol/L (3.5-5.1)
[2020-03-02 05:45] VITALS: BP 124/69
[2020-03-02 06:02] LABS: BUN/Creatinine Ratio 26.2; Bilirubin, Total 0.5 mg/dL (0.2-1.0); Phosphorus 3.6 mg/dL (2.5-4.90); Total Protein 7.8 g/dL (6.4-8.2)
[2020-03-02] MEDS: Glucerna Carbsteady SHAKE Vanilla 8oz PO SCH ×2 (08:00→12:23)
[2020-03-02 08:37] VITALS: BP 112/73
[2020-03-02] MEDS: FLUCONAZOLE 200MG/100ML 100 ML IV SCH ×2 (09:34→11:00)
[2020-03-02] MEDS: PANTOPRAZOLE 40 MG/10 ML VIAL INJ IV SCH (09:34)
[2020-03-02] MEDS: LOSARTAN POTASSIUM 50 MG TAB PO SCH (09:35)
[2020-03-02] MEDS: SODIUM CHLOR 0.9% PF (SALINE LOCK) 10ML VIAL/SYR IV SCH (09:35)
[2020-03-02] MEDS: PHENYTOIN 100 MG/4 ML SUSP PO SCH (09:36)
[2020-03-02 12:47] VITALS: BP 121/67
[2020-03-02 13:57] VITALS: BP 112/73
== END 2020-03-02 15:25 | disposition home or self-care (01) | DRG 870 ==
LOC: ER 15:36 → OVERFLOW 15:37 → WEST WING 02-19 12:50 → ICU CENTRL 02-20 23:15 → DOU IN ICU 02-20 23:57 → CATH ICU 02-22 14:47 → TELE-CENTR 02-26 19:02
PROVIDERS: ADMIT Family Medicine; ATTEND Family Medicine
PROC: 5A1955Z Respiratory Ventilation, Greater than 96 Consecutive Hours (ICD-10-PCS; principal; 2020-02-21)
PROC: 0BH17EZ Insertion of Endotracheal Airway into Trachea, Via Natural or Artificial Opening (ICD-10-PCS; 2020-02-21)
PROC: 0W9B3ZZ Drainage of Left Pleural Cavity, Percutaneous Approach (ICD-10-PCS; 2020-02-22)
PROC: 0W993ZZ Drainage of Right Pleural Cavity, Percutaneous Approach (ICD-10-PCS; 2020-02-22)
DX: A41.9 Sepsis, unspecified organism (principal); J15.6 Pneumonia due to other Gram-negative bacteria; J96.01 Acute respiratory failure with hypoxia; K65.1 Peritoneal abscess; N17.0 Acute kidney failure with tubular necrosis; R65.21 Severe sepsis with septic shock; E44.0 Moderate protein-calorie malnutrition; E87.1 Hypo-osmolality and hyponatremia; J90 Pleural effusion, not elsewhere classified; L03.311 Cellulitis of abdominal wall; Z20.828 Contact with and (suspected) exposure to other viral communicable diseases; B37.9 Candidiasis, unspecified; E11.22 Type 2 diabetes mellitus with diabetic chronic kidney disease; I12.9 Hypertensive chronic kidney disease with stage 1 through stage 4 chronic kidney disease, or unspecified chronic kidney disease; N18.9 Chronic kidney disease, unspecified; Z90.49 Acquired absence of other specified parts of digestive tract; Z79.899 Other long term (current) drug therapy; Z68.21 Body mass index [BMI] 21.0-21.9, adult
CPT/HCPCS: 10022; 36415; 36569; 36600; 71045; 71250; 71275; 74022; 74176; 76942; 80053; 80202; 80307; 81001; 82040; 82150; 82728; 82805; 82962; 83036; 83605; 83615; 83690; 83735; 83880; 83986; 84100; 84443; 84478; 84484; 85025; 85379; 85610; 85730; 86141; 87040; 87070; 87077; 87081; 87086; 87088; 87186; 87205; 87426; 89051; 92610; 93005; 93970; 94002; 94003; 94640; 96361; 96365; 96367; 96372; 96375; 97116; 97163; 97530; A4223; C1729; C9113; G0378; J0330; J0696; J1450; J1815; J2185; J2250; J2543; J3490; J7060; J7131